=== PATIENT | male | born 1975 | race African-American/Black ===

== ENCOUNTER 2021-04-10 23:52 | Inpatient (IN) | payer OTHER ==
[2021-04-11 01:34] LABS: BASO % 0.9 % (0-2.0); EOS % 4.8 % (0-4.5); HEMATOCRIT 29.8 % (35.4-49); HEMOGLOBIN 9.8 GM/dL (11.7-16.9); LYMPH % 25.5 % (8-40); MCH 27.4 pg (25.7-33.7); MCHC 32.9 g/dl (32.0-35.9); MEAN CELL VOLUME 83.1 fl (80-96); MEAN PLT VOLUME 7.1 fl (7.5-11.1); MONO % 10.7 % (3.8-10.2); NEUT % 58.1 % (42.8-82.8); PLATELET COUNT 290 10^3/uL (134-434); RBC 3.59 M/mm3 (4.00-5.60); RDW 14.3 % (11.9-15.9); WHITE BLOOD COUNT 9.1 K/mm3 (4.0-10.0)
[2021-04-11 01:42] LABS: INR 1.17 (0.83-1.09); PROTHROMBIN TIME (PATIENT) 14.3 SEC (9.7-13.0)
[2021-04-11 01:43] LABS: URINE APPEARANCE Clear; URINE BILIRUBIN Negative (NEGATIVE); URINE COLOR Yellow; URINE GLUCOSE (UA) Negative (NEGATIVE); URINE KETONE Negative (NEGATIVE); URINE LEUK ESTERASE 1+ (NEGATIVE); URINE NITRITE Positive (NEGATIVE); URINE PROTEIN Negative (NEGATIVE); URINE UROBILINOGEN 0.2 mg/dL (0.2-1.0)
[2021-04-11 01:44] LABS: ACTIVATED PTT 28.8 SECONDS (25.2-36.5)
[2021-04-11] MEDS ORDERED: CEFTRIAXONE 1 GM in DEXTROSE 5%-WATER - 100 ML IVPB ONE (01:47)
[2021-04-11 01:51] LABS: CHLORIDE 100 mmol/L (98-107); SODIUM 134 mmol/L (136-145)
[2021-04-11 01:54] LABS: ALBUMIN 2.8 g/dl (3.4-5.0); ANION GAP 7 MMOL/L (8-16); BLOOD UREA NITROGEN 16.2 mg/dL (7-18); CO2 27 mmol/L (21-32); GLUCOSE,RANDOM 95 mg/dL (74-106)
[2021-04-11 01:57] LABS: SGOT/AST 37 U/L (15-37); SGPT/ALT 56 U/L (13-61)
[2021-04-11 01:58] LABS: BILIRUBIN,TOTAL < 0.1 mg/dL (0.2-1)
[2021-04-11 01:59] LABS: TOT PROT 8.2 g/dl (6.4-8.2)
[2021-04-11 02:00] LABS: ALK PHOS 82 U/L (45-117)
[2021-04-11 02:07] LABS: CREATININE 0.8 mg/dL (0.55-1.3)
[2021-04-11] MEDS ORDERED: CEFTRIAXONE 1 GM/50 ML BAG ONE (02:23)
[2021-04-11 03:38] LABS: URINE CRYSTALS NONE SEEN /hpf
[2021-04-11 04:59] LABS: PLATELET ESTIMATE NORMAL
[2021-04-11] MEDS ORDERED: oxyCODONE HCL 5 MG TABLET PO PRN (10:34)
[2021-04-11] MEDS ORDERED: PT OWN MED DRAWER 7, Y5N ONE ×4 (12:04→21:43)
[2021-04-11] MEDS: TIZANIDINE HCL 4 MG TABLET PO PRN ×2 (12:09→20:10)
[2021-04-11] MEDS: METOCLOPRAMIDE HCL 10 MG TABLET (FP) PO SCH ×2 (12:09→17:48)
[2021-04-11 13:10] VITALS: BMI 26.2
[2021-04-11] MEDS ORDERED: PNEUMOC 13-VAL CONJ-DIP CRM/PF 0.5 ML DISP.SYRIN IM ONE (13:39)
[2021-04-11] MEDS ORDERED: PNEUMOCOCCAL 23 VACCINE 0.5 ML VIAL IM ONE (14:00)
[2021-04-11] MEDS: HEPARIN NA (PORCINE) 5,000 UNITS/ML 1ML VIAL SQ SCH ×2 (15:00→21:23)
[2021-04-11] MEDS: GABAPENTIN 300 MG CAPSULE PO SCH ×2 (15:00→21:23)
[2021-04-11] MEDS: DOCUSATE SODIUM 100 MG CAPSULE (FP) PO SCH ×2 (15:00→21:23)
[2021-04-11] MEDS: FAMOTIDINE 20 MG TABLET PO SCH (21:23)
[2021-04-11] MEDS: RAMELTEON 8 MG TABLET PO SCH (22:48)
[2021-04-12] MEDS: GABAPENTIN 300 MG CAPSULE PO SCH ×3 (06:04→21:15)
[2021-04-12] MEDS: HEPARIN NA (PORCINE) 5,000 UNITS/ML 1ML VIAL SQ SCH ×3 (06:04→21:16)
[2021-04-12] MEDS: DOCUSATE SODIUM 100 MG CAPSULE (FP) PO SCH ×3 (06:04→21:15)
[2021-04-12] MEDS: METOCLOPRAMIDE HCL 10 MG TABLET (FP) PO SCH ×3 (06:06→16:37)
[2021-04-12] MEDS: TIZANIDINE HCL 4 MG TABLET PO PRN (06:07)
[2021-04-12] MEDS ORDERED: PT OWN MED DRAWER 7, Y5N ONE (10:27)
[2021-04-12] MEDS: ASCORBIC ACID 250 MG TABLET (FP) PO SCH (10:33)
[2021-04-12] MEDS: LORATADINE 10 MG TABLET PO SCH (10:33)
[2021-04-12] MEDS: FAMOTIDINE 20 MG TABLET PO SCH ×2 (10:33→21:15)
[2021-04-12] MEDS: THIAMINE HCL 100 MG TABLET (FP) PO SCH (10:33)
[2021-04-12] MEDS: ACETAMINOPHEN 325 MG TABLET (FP) PO PRN (10:34)
[2021-04-12 10:57] LABS: BASO % 0.4 % (0-2.0); HEMATOCRIT 28.9 % (35.4-49); HEMOGLOBIN 9.5 GM/dL (11.7-16.9); LYMPH % 13.7 % (8-40); MCH 27.4 pg (25.7-33.7); MEAN CELL VOLUME 82.9 fl (80-96); MEAN PLT VOLUME 7.5 fl (7.5-11.1); MONO % 8.8 % (3.8-10.2); NEUT % 74.1 % (42.8-82.8); PLATELET COUNT 293 10^3/uL (134-434); RBC 3.48 M/mm3 (4.00-5.60); RDW 14.2 % (11.9-15.9); WHITE BLOOD COUNT 6.6 K/mm3 (4.0-10.0)
[2021-04-12 11:15] LABS: CALCIUM 8.6 mg/dL (8.5-10.1)
[2021-04-12 11:16] LABS: ALBUMIN 2.6 g/dl (3.4-5.0); BLOOD UREA NITROGEN 6.7 mg/dL (7-18)
[2021-04-12 11:19] LABS: CREATININE 0.6 mg/dL (0.55-1.3)
[2021-04-12 11:20] LABS: BILIRUBIN,TOTAL 0.4 mg/dL (0.2-1); TOT PROT 7.7 g/dl (6.4-8.2)
[2021-04-12] MEDS: COLLAGENASE CLOSTRIDIUM HIST. 30 GRAMS TUBE TP SCH (12:00)
[2021-04-12] MEDS: LIPASE/PROTEASE/AMYLASE 36,000 UNIT CAPSULE PO SCH ×2 (12:00→17:26)
[2021-04-12] MEDS: BACLOFEN 10 MG TABLET (FP) PO SCH ×2 (14:32→21:15)
[2021-04-12] MEDS: DEXTROSE 5%-NORMAL SALINE 1,000 ML IV SCH (16:36)
[2021-04-12] MEDS: METOCLOPRAMIDE HCL INJECTION 10 MG/2 ML VIAL IVPUSH SCH (18:43)
[2021-04-12] MEDS: diazePAM CARPU-JECT 10 MG/2 ML DISP.SYRIN IVPUSH PRN (19:02)
[2021-04-12] MEDS: RAMELTEON 8 MG TABLET PO SCH (21:15)
[2021-04-12] MEDS ORDERED: ACETAMINOPHEN 1000 MG/100 ML VIAL (NON FORMULARY) IVPB ONE (23:08)
[2021-04-13] MEDS: METOCLOPRAMIDE HCL INJECTION 10 MG/2 ML VIAL IVPUSH SCH ×3 (01:52→17:03)
[2021-04-13] MEDS: HEPARIN NA (PORCINE) 5,000 UNITS/ML 1ML VIAL SQ SCH ×3 (06:37→21:10)
[2021-04-13] MEDS: DOCUSATE SODIUM 100 MG CAPSULE (FP) PO SCH ×3 (06:38→21:10)
[2021-04-13] MEDS: GABAPENTIN 300 MG CAPSULE PO SCH ×3 (06:38→21:10)
[2021-04-13] MEDS: DEXTROSE 5%-NORMAL SALINE 1,000 ML IV SCH ×2 (06:38→17:07)
[2021-04-13] MEDS: BACLOFEN 10 MG TABLET (FP) PO SCH ×3 (06:38→21:10)
[2021-04-13] MEDS: LIPASE/PROTEASE/AMYLASE 36,000 UNIT CAPSULE PO SCH ×3 (07:20→17:08)
[2021-04-13 07:48] LABS: HEMOGLOBIN 9.6 GM/dL (11.7-16.9); MCH 27.5 pg (25.7-33.7); MCHC 33.1 g/dl (32.0-35.9); PLATELET COUNT 264 10^3/uL (134-434); RDW 13.9 % (11.9-15.9); WHITE BLOOD COUNT 5.2 K/mm3 (4.0-10.0)
[2021-04-13 08:11] LABS: ALBUMIN 2.6 g/dl (3.4-5.0); BLOOD UREA NITROGEN 3.1 mg/dL (7-18); CALCIUM 8.7 mg/dL (8.5-10.1); MAGNESIUM 1.7 mg/dL (1.8-2.4)
[2021-04-13 08:15] LABS: CREATININE 0.5 mg/dL (0.55-1.3)
[2021-04-13 08:16] LABS: BILIRUBIN,TOTAL 0.8 mg/dL (0.2-1); TOT PROT 7.8 g/dl (6.4-8.2)
[2021-04-13] MEDS: diazePAM CARPU-JECT 10 MG/2 ML DISP.SYRIN IVPUSH PRN (08:23)
[2021-04-13] MEDS: FAMOTIDINE 20 MG TABLET PO SCH ×2 (09:58→21:10)
[2021-04-13] MEDS: COLLAGENASE CLOSTRIDIUM HIST. 30 GRAMS TUBE TP SCH (09:58)
[2021-04-13] MEDS: LORATADINE 10 MG TABLET PO SCH (09:58)
[2021-04-13] MEDS: THIAMINE HCL 100 MG TABLET (FP) PO SCH (09:59)
[2021-04-13] MEDS: ASCORBIC ACID 250 MG TABLET (FP) PO SCH (09:59)
[2021-04-13] MEDS: IPRATROPIUM BR 0.02% 0.5 MG/2.5 ML VIAL.NEB. NEB PRN (11:20)
[2021-04-13] MEDS ORDERED: Methylnaltrexone Bromide 12 MG/0.6 ML KIT SQ SCH (11:30)
[2021-04-13] MEDS ORDERED: KETOROLAC TROMETHAMINE 30 MG/1 ML VIAL IVPUSH SCH (12:45)
[2021-04-13] MEDS: KETOROLAC TROMETHAMINE 30 MG/1 ML VIAL IVPUSH PRN ×2 (13:09→21:21)
[2021-04-13] MEDS: RAMELTEON 8 MG TABLET PO SCH (21:11)
[2021-04-14] MEDS: METOCLOPRAMIDE HCL INJECTION 10 MG/2 ML VIAL IVPUSH SCH ×3 (02:08→17:47)
[2021-04-14] MEDS: BACLOFEN 10 MG TABLET (FP) PO SCH ×3 (05:23→21:14)
[2021-04-14] MEDS: GABAPENTIN 300 MG CAPSULE PO SCH ×3 (05:23→21:13)
[2021-04-14] MEDS: DOCUSATE SODIUM 100 MG CAPSULE (FP) PO SCH ×3 (05:23→21:12)
[2021-04-14] MEDS: HEPARIN NA (PORCINE) 5,000 UNITS/ML 1ML VIAL SQ SCH ×3 (05:24→21:12)
[2021-04-14] MEDS: DEXTROSE 5%-NORMAL SALINE 1,000 ML IV SCH ×2 (05:27→17:47)
[2021-04-14] MEDS ORDERED: PT OWN MED DRAWER 7, Y5N ONE ×5 (07:46→22:51)
[2021-04-14] MEDS: TIZANIDINE HCL 4 MG TABLET PO PRN (07:49)
[2021-04-14] MEDS: LIPASE/PROTEASE/AMYLASE 36,000 UNIT CAPSULE PO SCH (09:09)
[2021-04-14] MEDS: LORATADINE 10 MG TABLET PO SCH (10:50)
[2021-04-14] MEDS: FAMOTIDINE 20 MG TABLET PO SCH ×2 (10:51→21:12)
[2021-04-14] MEDS: COLLAGENASE CLOSTRIDIUM HIST. 30 GRAMS TUBE TP SCH (10:51)
[2021-04-14] MEDS: ASCORBIC ACID 250 MG TABLET (FP) PO SCH (10:51)
[2021-04-14] MEDS: THIAMINE HCL 100 MG TABLET (FP) PO SCH (10:51)
[2021-04-14] MEDS ORDERED: BACLOFEN 10 MG TABLET (FP) PO SCH (11:16)
[2021-04-14] MEDS: ACETAMINOPHEN 325 MG TABLET (FP) PO PRN (14:41)
[2021-04-14] MEDS: RAMELTEON 8 MG TABLET PO SCH (21:18)
[2021-04-15] MEDS: METOCLOPRAMIDE HCL INJECTION 10 MG/2 ML VIAL IVPUSH SCH ×3 (01:11→18:57)
[2021-04-15] MEDS: TIZANIDINE HCL 4 MG TABLET PO PRN ×2 (01:14→12:18)
[2021-04-15] MEDS: BACLOFEN 10 MG TABLET (FP) PO SCH ×3 (05:04→21:44)
[2021-04-15] MEDS: GABAPENTIN 300 MG CAPSULE PO SCH ×3 (05:04→21:43)
[2021-04-15] MEDS: DOCUSATE SODIUM 100 MG CAPSULE (FP) PO SCH ×2 (05:04→13:31)
[2021-04-15] MEDS: HEPARIN NA (PORCINE) 5,000 UNITS/ML 1ML VIAL SQ SCH ×3 (05:05→21:43)
[2021-04-15] MEDS: DEXTROSE 5%-NORMAL SALINE 1,000 ML IV SCH ×2 (05:25→18:46)
[2021-04-15 08:10] LABS: CHLORIDE 109 mmol/L (98-107); SODIUM 142 mmol/L (136-145)
[2021-04-15 08:13] LABS: ANION GAP 7 MMOL/L (8-16); CO2 26 mmol/L (21-32); GLUCOSE,RANDOM 96 mg/dL (74-106); MAGNESIUM 1.7 mg/dL (1.8-2.4)
[2021-04-15 08:17] LABS: CREATININE 0.5 mg/dL (0.55-1.3)
[2021-04-15 08:42] LABS: HEMATOCRIT 24.7 % (35.4-49); MCH 27.1 pg (25.7-33.7); MCHC 32.5 g/dl (32.0-35.9); MEAN CELL VOLUME 83.5 fl (80-96); PLATELET COUNT 252 10^3/uL (134-434); RBC 2.96 M/mm3 (4.00-5.60); RDW 14.2 % (11.9-15.9); WHITE BLOOD COUNT 5.1 K/mm3 (4.0-10.0)
[2021-04-15] MEDS ORDERED: PT OWN MED DRAWER 7, Y5N ONE ×5 (10:05→21:05)
[2021-04-15] MEDS: ASCORBIC ACID 250 MG TABLET (FP) PO SCH (11:03)
[2021-04-15] MEDS: FAMOTIDINE 20 MG TABLET PO SCH ×2 (11:03→21:43)
[2021-04-15] MEDS: LORATADINE 10 MG TABLET PO SCH (11:03)
[2021-04-15] MEDS: THIAMINE HCL 100 MG TABLET (FP) PO SCH (11:03)
[2021-04-15] MEDS: COLLAGENASE CLOSTRIDIUM HIST. 30 GRAMS TUBE TP SCH (11:04)
[2021-04-15] MEDS: ACETAMINOPHEN 325 MG TABLET (FP) PO PRN ×2 (12:18→22:28)
[2021-04-15] MEDS: METOCLOPRAMIDE HCL 10 MG TABLET (FP) PO SCH (19:06)
[2021-04-15] MEDS: IPRATROPIUM BR 0.02% 0.5 MG/2.5 ML VIAL.NEB. NEB PRN (20:30)
[2021-04-15] MEDS: POLYETHYLENE GLYCOL 3350 119 GM BTL PO SCH (21:45)
[2021-04-15] MEDS: RAMELTEON 8 MG TABLET PO SCH (21:48)
[2021-04-16] MEDS: HEPARIN NA (PORCINE) 5,000 UNITS/ML 1ML VIAL SQ SCH ×3 (05:21→21:05)
[2021-04-16] MEDS: BACLOFEN 10 MG TABLET (FP) PO SCH ×3 (05:21→21:04)
[2021-04-16] MEDS: GABAPENTIN 300 MG CAPSULE PO SCH ×3 (05:21→21:04)
[2021-04-16] MEDS: POLYETHYLENE GLYCOL 3350 119 GM BTL PO SCH ×2 (05:21→16:09)
[2021-04-16] MEDS: METOCLOPRAMIDE HCL 10 MG TABLET (FP) PO SCH ×3 (06:25→18:55)
[2021-04-16] MEDS ORDERED: PT OWN MED DRAWER 7, Y5N ONE (10:10)
[2021-04-16] MEDS: THIAMINE HCL 100 MG TABLET (FP) PO SCH (10:12)
[2021-04-16] MEDS: FAMOTIDINE 20 MG TABLET PO SCH ×2 (10:12→21:04)
[2021-04-16] MEDS: ASCORBIC ACID 250 MG TABLET (FP) PO SCH (10:13)
[2021-04-16] MEDS: LORATADINE 10 MG TABLET PO SCH (10:13)
[2021-04-16] MEDS: COLLAGENASE CLOSTRIDIUM HIST. 30 GRAMS TUBE TP SCH (13:01)
[2021-04-16] MEDS: ACETAMINOPHEN 325 MG TABLET (FP) PO PRN (13:27)
[2021-04-16] MEDS: IPRATROPIUM BR 0.02% 0.5 MG/2.5 ML VIAL.NEB. NEB PRN ×2 (14:45→20:15)
[2021-04-16] MEDS: POLYETHYLENE GLYCOL (HEALTHYLAX) 3350 17 GM PACKET PO SCH (21:04)
[2021-04-16] MEDS: RAMELTEON 8 MG TABLET PO SCH (21:05)
[2021-04-17] MEDS: HEPARIN NA (PORCINE) 5,000 UNITS/ML 1ML VIAL SQ SCH (05:14)
[2021-04-17] MEDS: GABAPENTIN 300 MG CAPSULE PO SCH (05:14)
[2021-04-17] MEDS: POLYETHYLENE GLYCOL (HEALTHYLAX) 3350 17 GM PACKET PO SCH (05:14)
[2021-04-17] MEDS: BACLOFEN 10 MG TABLET (FP) PO SCH (05:14)
[2021-04-17] MEDS: METOCLOPRAMIDE HCL 10 MG TABLET (FP) PO SCH (06:04)
[2021-04-17] MEDS: IPRATROPIUM BR 0.02% 0.5 MG/2.5 ML VIAL.NEB. NEB PRN (07:45)
[2021-04-17] MEDS: THIAMINE HCL 100 MG TABLET (FP) PO SCH (09:35)
[2021-04-17] MEDS: COLLAGENASE CLOSTRIDIUM HIST. 30 GRAMS TUBE TP SCH (09:36)
[2021-04-17] MEDS: FAMOTIDINE 20 MG TABLET PO SCH (09:36)
[2021-04-17] MEDS: LORATADINE 10 MG TABLET PO SCH (09:36)
[2021-04-17] MEDS: ASCORBIC ACID 250 MG TABLET (FP) PO SCH (09:36)
[2021-04-17 11:28] VITALS: BP 144/92; PULSE 98; TEMP 97.7
[2021-04-17] MEDS ORDERED: MAGNESIUM 2GM/50ML STERILE WATER IVPB IVPB ONE (12:15)
== END 2021-04-17 12:12 | DRG 388 ==
LOC: JER 23:52 → JERBED 04-11 05:15 → J5S 04-11 09:14
PROVIDERS: ADMIT Internal Medicine; ATTEND Family Medicine
DX: K56.7 Ileus, unspecified (principal); L89.313 Pressure ulcer of right buttock, stage 3; L89.324 Pressure ulcer of left buttock, stage 4; R53.2 Functional quadriplegia; J96.11 Chronic respiratory failure with hypoxia; N39.0 Urinary tract infection, site not specified; Z93.0 Tracheostomy status; R14.0 Abdominal distension (gaseous); M41.9 Scoliosis, unspecified; I10 Essential (primary) hypertension; M62.838 Other muscle spasm; K31.84 Gastroparesis
CPT/HCPCS: 36415; 71045-TC-FY; 74018-TC-FY; 80048; 80053; 81003; 83605; 83735; 85025; 85027; 85610; 85730; 87040; 87086; 87186; 90732; 93005; 93010; 94002; 94640; 97161-GP; 99285-25; C9803; G0009; J0131; J0475; J1644; U0003; U0005